=== PATIENT | male | born 1950 | race Caucasian/White ===

== ENCOUNTER 2024-08-19 07:49 | Inpatient (IN) ==
[2024-08-19] MEDS: HYDROmorphone 1 MG/ML SYRINGE IV ONE (08:57)
[2024-08-19 09:00] LABS: Basophils # (Auto) 0.02 K/mcL (0.00-0.30); Basophils % (Auto) 0.2 % (0.0-2.0); Eosinophils # (Auto) 0 K/mcL (0.00-0.70); Eosinophils % (Auto) 0 % (0.0-7.0); Hematocrit 40.7 % (40.1-51.0); Hemoglobin 13.9 g/dL (13.7-17.5); Lymphocytes % (Auto) 3.8 % (15.5-49.0); Mean Cell Volume 92.5 fL (80.0-100.0); Mean Corpuscular HGB Conc 34.2 g/dL (31.0-36.0); Mean Platelet Volume 8.7 fL (8.8-12.5); Monocytes # (Auto) 0.97 K/mcL (0.10-0.90); Monocytes % (Auto) 7.3 % (1.0-12.0); Neutrophils % (Auto) 88.3 % (38.0-78.0); Platelet Count 162 K/mcL (140-440); WBC 13.3 K/mcL (4.5-11.0)
[2024-08-19] MEDS: KETOROLAC 30 MG/ML VIAL IV ONE ×2 (09:01→09:22)
[2024-08-19 09:12] LABS: INR 1.1 (0.9-1.1); Prothrombin Time 14.8 sec (11.9-14.5)
[2024-08-19 09:22] LABS: ALT/SGPT 16 U/L (<40); AST/SGOT 14 U/L (<40); Albumin 3.7 gm/dL (3.2-5.2); Albumin/Globulin Ratio 1.6 (1.0-2.3); Alkaline Phosphatase 55 U/L (39-117); Bilirubin,Total 1.2 mg/dL (0.1-1.0); Blood Urea Nitrogen 14 mg/dL (8-23); Calcium 9.5 mg/dL (8.6-10.4); Carbon Dioxide 23 mmol/L (22-30); Chloride 95 mmol/L (96-108); Globulin 2.3 gm/dL (2.2-3.7); Glomerular Filtration Rate 84; Glucose 161 mg/dL (70-105); Potassium 3.8 mmol/L (3.3-5.1); Sodium 130 mmol/L (133-145)
[2024-08-19] MEDS: VANCOMYCIN PER PHARMACY IV ONE ×2 (09:50→15:57)
[2024-08-19] MEDS: VANCOMYCIN 1,250 MG in 0.9 % SODIUM CHLORIDE 500 ML IV SCH (09:50)
[2024-08-19] MEDS: cefTRIAXone 2 GM in DEXTROSE 5% IN WATER 50 ML IV ONE (11:30)
[2024-08-19] MEDS ORDERED: ONDANSETRON 4 MG/2 ML VIAL IV PRN ×3 (12:49→23:09)
[2024-08-19] MEDS ORDERED: VANCOMYCIN PER PHARMACY IV SCH (13:30)
[2024-08-19] MEDS: 0.9 % SODIUM CHLORIDE 1,000 ML IV SCH (13:52)
[2024-08-19] MEDS: VANCOMYCIN 1,000 MG in 0.9 % SODIUM CHLORIDE 250 ML IV SCH (14:00)
[2024-08-19] MEDS: MAGNESIUM SULFATE 2 GM/50 ML BAG IV ONE (14:05)
[2024-08-19] MEDS: 0.9 % SODIUM CHLORIDE 10 ML SYRINGE IV SCH (14:05)
[2024-08-19] MEDS: LACTATED RINGERS 1,000 ML IV SCH ×2 (14:37→23:20)
[2024-08-19 15:12] LABS: Appearance,Urine Clear (Clear); Bilirubin,Urine Negative (Negative); Color,Urine Yellow; Glucose,Urine (UA) Negative (Negative); Ketones,Urine Negative (Negative); Leukocyte Esterase,Urine Negative /uL (Negative); Nitrate,Urine Negative (Negative); Protein,Urine Negative (Negative); Urine Blood Negative ery/mcL (Negative); Urine RBC 0 /hpf (0-3); Urine Squamous Epithelial Cell 0 /hpf (0-4); Urine WBC 0 /hpf (0-4); Urobilinogen,Urine Normal
[2024-08-19] MEDS ORDERED: KETAMINE 50 MG/ML ML ONE (20:50)
[2024-08-19] MEDS ORDERED: PROPOFOL 200 MG/20 ML VIAL IV ONE (20:50)
[2024-08-19] MEDS ORDERED: ONDANSETRON 4 MG/2 ML VIAL ONE (20:51)
[2024-08-19] MEDS ORDERED: DEXAMETHASONE 10 MG/ML VIAL ONE (20:51)
[2024-08-19] MEDS ORDERED: LIDOCAINE 2% PF 5 ML VIAL ONE (20:51)
[2024-08-19] MEDS ORDERED: PHENYLephrine 1 MG/10 ML SYRINGE (ANEST) ONE (21:37)
[2024-08-19] MEDS ORDERED: fentaNYL 100 MCG/2 ML VIAL ONE ×2 (21:41→21:43)
[2024-08-19] MEDS ORDERED: HYDROmorphone 0.5 MG/0.5 ML SYRINGE ONE (21:56)
[2024-08-19] MEDS: VANCOMYCIN 1 GM VIAL TOPICAL SCH (22:00)
[2024-08-19] MEDS: TOBRAMYCIN PER PHARMACY IV ONE (22:00)
[2024-08-19] MEDS ORDERED: IPRATROPIUM/ALBUTEROL 3 ML AMPUL.NEB NEB PRN (22:22)
[2024-08-19] MEDS ORDERED: diphenhydrAMINE 50 MG/ML VIAL IV PRN (22:22)
[2024-08-19] MEDS ORDERED: fentaNYL 100 MCG/2 ML VIAL IV PRN (22:22)
[2024-08-19] MEDS ORDERED: LACTATED RINGERS 250 ML IV PRN (22:22)
[2024-08-19] MEDS ORDERED: NALOXONE HCL 0.4 MG/ML VIAL IV PRN (22:22)
[2024-08-19] MEDS ORDERED: BISACODYL 10 MG SUPP.RECT PR PRN (23:09)
[2024-08-19] MEDS ORDERED: BENZOCAINE/MENTHOL 1 LOZENGE PO PRN (23:09)
[2024-08-19] MEDS ORDERED: FLEETS ADULT 1 DOSE ENEMA PR PRN (23:09)
[2024-08-19] MEDS ORDERED: HYDROcodone/APAP 10/325MG TABLET PO PRN (23:09)
[2024-08-19] MEDS: ACETAMINOPHEN 1,000 MG/100 ML BAG IV ONE (23:20)
[2024-08-19] MEDS: HYDROmorphone 0.5 MG/0.5 ML SYRINGE IV PRN (23:52)
[2024-08-20] MEDS: oxyCODONE IR 5 MG TABLET PO PRN ×2 (00:03→08:26)
[2024-08-20] MEDS: morphine 4 MG/ML VIAL IV PRN (00:07)
[2024-08-20] MEDS: SENNOSIDES 1 TABLET PO SCH ×2 (02:42→20:04)
[2024-08-20] MEDS: LACTATED RINGERS 1,000 ML IV SCH (02:43)
[2024-08-20] MEDS: TRANEXAMIC ACID 1,000 MG/10 ML VIAL IV ONE (03:18)
[2024-08-20 06:07] LABS: Basophils # (Auto) 0.01 K/mcL (0.00-0.30); Basophils % (Auto) 0.1 % (0.0-2.0); Eosinophils # (Auto) 0 K/mcL (0.00-0.70); Eosinophils % (Auto) 0 % (0.0-7.0); Hematocrit 40.7 % (40.1-51.0); Hemoglobin 13.7 g/dL (13.7-17.5); Lymphocytes # (Auto) 0.41 K/mcL (1.50-4.80); Lymphocytes % (Auto) 3.3 % (15.5-49.0); Mean Cell Volume 94.7 fL (80.0-100.0); Mean Corpuscular HGB Conc 33.7 g/dL (31.0-36.0); Mean Platelet Volume 8.9 fL (8.8-12.5); Monocytes # (Auto) 0.36 K/mcL (0.10-0.90); Monocytes % (Auto) 2.9 % (1.0-12.0); Neutrophils % (Auto) 93.3 % (38.0-78.0); Platelet Count 168 K/mcL (140-440); WBC 12.3 K/mcL (4.5-11.0)
[2024-08-20 06:23] LABS: ALT/SGPT 13 U/L (<40); AST/SGOT 15 U/L (<40); Albumin 3.3 gm/dL (3.2-5.2); Albumin/Globulin Ratio 1.3 (1.0-2.3); Alkaline Phosphatase 52 U/L (39-117); Bilirubin,Direct 0.4 mg/dL (<0.3); Bilirubin,Total 0.7 mg/dL (0.1-1.0); Blood Urea Nitrogen 15 mg/dL (8-23); Calcium 9.3 mg/dL (8.6-10.4); Carbon Dioxide 22 mmol/L (22-30); Chloride 99 mmol/L (96-108); Globulin 2.6 gm/dL (2.2-3.7); Glomerular Filtration Rate 84; Glucose 174 mg/dL (70-105); Lactate Dehydrogenase 215 U/L (135-225); Phosphorous 3.1 mg/dL (2.5-4.5); Potassium 4.4 mmol/L (3.3-5.1); Sodium 134 mmol/L (133-145); Triglycerides 53 mg/dL (<150); Uric Acid 4.6 mg/dL (2.5-8.0)
[2024-08-20] MEDS: morphine 4 MG/ML VIAL ONE ×3 (06:30→06:35)
[2024-08-20] MEDS: 0.9 % SODIUM CHLORIDE 10 ML SYRINGE IV SCH ×2 (06:36→09:47)
[2024-08-20] MEDS: ACETAMINOPHEN 1,000 MG/100 ML BAG IV ONE (06:52)
[2024-08-20] MEDS ORDERED: 0.9 % SODIUM CHLORIDE 10 ML SYRINGE IV PRN (08:03)
[2024-08-20] MEDS: METHOCARBAMOL 750 MG TABLET PO PRN (08:26)
[2024-08-20] MEDS: cefTRIAXone 2 GM in DEXTROSE 5% IN WATER 50 ML IV SCH (08:27)
[2024-08-20] MEDS: DOCUSATE SODIUM 100 MG CAPSULE PO SCH (08:27)
[2024-08-20] MEDS: ASPIRIN 81 MG TAB.CHEW PO SCH (08:27)
[2024-08-20] MEDS: VANCOMYCIN 1,000 MG in 0.9 % SODIUM CHLORIDE 250 ML IV SCH (09:48)
[2024-08-20] MEDS ORDERED: SODIUM CHLORIDE IRRIG SOLUTION 250 ML BOTTLE IRR ONE (09:49)
[2024-08-20] MEDS ORDERED: LIDOCAINE 1% 10 ML VIAL SQ ONE (09:49)
[2024-08-20] MEDS: TOBRAMYCIN SULFATE 1.2 GM VIAL TOPICAL ONE (10:30)
[2024-08-20] MEDS ORDERED: cefTRIAXone 2 GM in DEXTROSE 5% IN WATER 50 ML IV SCH (10:45)
[2024-08-20] MEDS: FEXOFENADINE 180 MG TABLET PO SCH (11:14)
[2024-08-20] MEDS: BISOPROLOL 5 MG TABLET PO SCH (11:28)
[2024-08-20] MEDS: HYDROCHLOROTHIAZIDE 25 MG TABLET PO SCH (11:29)
[2024-08-21] MEDS: MAGNESIUM HYDROXIDE 30 ML ORAL.SUSP PO PRN (04:43)
[2024-08-21 06:38] LABS: Basophils # (Auto) 0.02 K/mcL (0.00-0.30); Basophils % (Auto) 0.2 % (0.0-2.0); Eosinophils # (Auto) 0.03 K/mcL (0.00-0.70); Eosinophils % (Auto) 0.3 % (0.0-7.0); Hematocrit 36.2 % (40.1-51.0); Hemoglobin 12.2 g/dL (13.7-17.5); Lymphocytes # (Auto) 0.89 K/mcL (1.50-4.80); Lymphocytes % (Auto) 9.9 % (15.5-49.0); Mean Cell Volume 95.3 fL (80.0-100.0); Mean Corpuscular HGB Conc 33.7 g/dL (31.0-36.0); Mean Platelet Volume 9.3 fL (8.8-12.5); Monocytes # (Auto) 0.73 K/mcL (0.10-0.90); Monocytes % (Auto) 8.1 % (1.0-12.0); Neutrophils % (Auto) 81.4 % (38.0-78.0); Platelet Count 180 K/mcL (140-440)
[2024-08-21 07:17] LABS: ALT/SGPT 13 U/L (<40); AST/SGOT 16 U/L (<40); Albumin 3.3 gm/dL (3.2-5.2); Albumin/Globulin Ratio 1.3 (1.0-2.3); Alkaline Phosphatase 56 U/L (39-117); Bilirubin,Direct 0.3 mg/dL (<0.3); Bilirubin,Total 0.6 mg/dL (0.1-1.0); Blood Urea Nitrogen 14 mg/dL (8-23); Carbon Dioxide 25 mmol/L (22-30); Chloride 100 mmol/L (96-108); Globulin 2.5 gm/dL (2.2-3.7); Glomerular Filtration Rate 88; Glucose 109 mg/dL (70-105); Lactate Dehydrogenase 223 U/L (135-225); Phosphorous 2.8 mg/dL (2.5-4.5); Sodium 136 mmol/L (133-145); Triglycerides 76 mg/dL (<150); Uric Acid 4.6 mg/dL (2.5-8.0)
[2024-08-21] MEDS: amLODIPine 5 MG TABLET PO SCH (08:14)
[2024-08-21] MEDS: ACETAMINOPHEN 325 MG TABLET PO PRN (08:14)
[2024-08-21] MEDS ORDERED: amLODIPine 5 MG TABLET PO SCH (09:00)
[2024-08-21] MEDS ORDERED: BISOPROLOL/HCTZ 5MG 1 TABLET PO SCH (09:00)
[2024-08-21] MEDS: CEFEPIME 2 GM VIAL IV SCH (11:14)
[2024-08-21] MEDS: CYCLOBENZAPRINE 10 MG TABLET PO PRN (21:42)
[2024-08-22 05:54] LABS: Basophils # (Auto) 0.03 K/mcL (0.00-0.30); Basophils % (Auto) 0.5 % (0.0-2.0); Eosinophils # (Auto) 0.22 K/mcL (0.00-0.70); Eosinophils % (Auto) 3.9 % (0.0-7.0); Hematocrit 35.8 % (40.1-51.0); Hemoglobin 11.8 g/dL (13.7-17.5); Lymphocytes # (Auto) 0.83 K/mcL (1.50-4.80); Lymphocytes % (Auto) 14.7 % (15.5-49.0); Mean Cell Volume 95.5 fL (80.0-100.0); Mean Platelet Volume 8.8 fL (8.8-12.5); Monocytes # (Auto) 0.48 K/mcL (0.10-0.90); Monocytes % (Auto) 8.5 % (1.0-12.0); Neutrophils % (Auto) 72.4 % (38.0-78.0); Platelet Count 176 K/mcL (140-440); RBC 3.75 M/mcL (4.63-6.08); Red Cell Distribution Width 12.9 % (11.5-14.5); WBC 5.6 K/mcL (4.5-11.0)
[2024-08-22 06:19] LABS: ALT/SGPT 14 U/L (<40); AST/SGOT 16 U/L (<40); Albumin 3.2 gm/dL (3.2-5.2); Albumin/Globulin Ratio 1.4 (1.0-2.3); Alkaline Phosphatase 47 U/L (39-117); Bilirubin,Direct 0.3 mg/dL (<0.3); Bilirubin,Total 0.6 mg/dL (0.1-1.0); Blood Urea Nitrogen 16 mg/dL (8-23); Calcium 10.2 mg/dL (8.6-10.4); Carbon Dioxide 27 mmol/L (22-30); Chloride 100 mmol/L (96-108); Globulin 2.3 gm/dL (2.2-3.7); Glomerular Filtration Rate 88; Glucose 103 mg/dL (70-105); Lactate Dehydrogenase 175 U/L (135-225); Phosphorous 3.7 mg/dL (2.5-4.5); Potassium 3.8 mmol/L (3.3-5.1); Sodium 137 mmol/L (133-145); Triglycerides 66 mg/dL (<150); Uric Acid 4.8 mg/dL (2.5-8.0)
[2024-08-22] MEDS: LOSARTAN 50 MG TABLET PO SCH (11:06)
[2024-08-23 05:37] LABS: Basophils # (Auto) 0.04 K/mcL (0.00-0.30); Basophils % (Auto) 0.8 % (0.0-2.0); Eosinophils % (Auto) 5.7 % (0.0-7.0); Hematocrit 36.3 % (40.1-51.0); Hemoglobin 12.3 g/dL (13.7-17.5); Lymphocytes # (Auto) 0.81 K/mcL (1.50-4.80); Lymphocytes % (Auto) 15.3 % (15.5-49.0); Mean Corpuscular HGB Conc 33.9 g/dL (31.0-36.0); Mean Platelet Volume 8.8 fL (8.8-12.5); Monocytes # (Auto) 0.56 K/mcL (0.10-0.90); Monocytes % (Auto) 10.6 % (1.0-12.0); Platelet Count 176 K/mcL (140-440); RBC 3.86 M/mcL (4.63-6.08); Red Cell Distribution Width 12.8 % (11.5-14.5); WBC 5.3 K/mcL (4.5-11.0)
[2024-08-23 06:08] LABS: Blood Urea Nitrogen 16 mg/dL (8-23); C-Reactive Protein 4.27 mg/dL (0.03-0.80); Calcium 10.5 mg/dL (8.6-10.4); Carbon Dioxide 25 mmol/L (22-30); Chloride 100 mmol/L (96-108); Glomerular Filtration Rate 88; Glucose 112 mg/dL (70-105); Potassium 3.7 mmol/L (3.3-5.1); Sodium 138 mmol/L (133-145)
[2024-08-24 06:27] LABS: Basophils # (Auto) 0.05 K/mcL (0.00-0.30); Basophils % (Auto) 0.8 % (0.0-2.0); Eosinophils # (Auto) 0.33 K/mcL (0.00-0.70); Eosinophils % (Auto) 5.4 % (0.0-7.0); Hematocrit 37.4 % (40.1-51.0); Hemoglobin 12.7 g/dL (13.7-17.5); Lymphocytes # (Auto) 0.94 K/mcL (1.50-4.80); Lymphocytes % (Auto) 15.4 % (15.5-49.0); Mean Cell Volume 93.7 fL (80.0-100.0); Mean Platelet Volume 8.8 fL (8.8-12.5); Monocytes # (Auto) 0.51 K/mcL (0.10-0.90); Monocytes % (Auto) 8.3 % (1.0-12.0); Neutrophils % (Auto) 69.3 % (38.0-78.0); Platelet Count 180 K/mcL (140-440); RBC 3.99 M/mcL (4.63-6.08); Red Cell Distribution Width 12.8 % (11.5-14.5); WBC 6.1 K/mcL (4.5-11.0)
[2024-08-24 07:07] LABS: Blood Urea Nitrogen 17 mg/dL (8-23); C-Reactive Protein 3.62 mg/dL (0.03-0.80); Calcium 10.8 mg/dL (8.6-10.4); Carbon Dioxide 24 mmol/L (22-30); Chloride 103 mmol/L (96-108); Creatine Kinase 22 U/L (24-195); Glomerular Filtration Rate 88; Glucose 133 mg/dL (70-105); Potassium 3.7 mmol/L (3.3-5.1); Sodium 138 mmol/L (133-145)
[2024-08-24] MEDS: POLYETHYLENE GLYCOL 3350 17 GM PACKET PO PRN (08:23)
[2024-08-24] MEDS: ALTEPLASE 2 MG VIAL IV PRN (22:50)
[2024-08-25 06:35] LABS: Basophils # (Auto) 0.05 K/mcL (0.00-0.30); Basophils % (Auto) 0.8 % (0.0-2.0); Eosinophils # (Auto) 0.32 K/mcL (0.00-0.70); Eosinophils % (Auto) 4.9 % (0.0-7.0); Hematocrit 37.6 % (40.1-51.0); Hemoglobin 12.6 g/dL (13.7-17.5); Lymphocytes % (Auto) 10.6 % (15.5-49.0); Mean Cell Volume 94.5 fL (80.0-100.0); Mean Corpuscular HGB Conc 33.5 g/dL (31.0-36.0); Mean Platelet Volume 8.8 fL (8.8-12.5); Monocytes # (Auto) 0.74 K/mcL (0.10-0.90); Monocytes % (Auto) 11.2 % (1.0-12.0); Neutrophils % (Auto) 71.6 % (38.0-78.0); Platelet Count 190 K/mcL (140-440); RBC 3.98 M/mcL (4.63-6.08); Red Cell Distribution Width 12.9 % (11.5-14.5); WBC 6.6 K/mcL (4.5-11.0)
[2024-08-25 07:12] LABS: Blood Urea Nitrogen 18 mg/dL (8-23); Calcium 10.5 mg/dL (8.6-10.4); Carbon Dioxide 25 mmol/L (22-30); Chloride 101 mmol/L (96-108); Glomerular Filtration Rate 88; Glucose 124 mg/dL (70-105); Potassium 4.1 mmol/L (3.3-5.1); Sodium 136 mmol/L (133-145)
[2024-08-25] MEDS: cefTRIAXone 1 GM VIAL IV SCH (08:37)
[2024-08-25] MEDS: cefTRIAXone 2 GM in DEXTROSE 5% IN WATER 50 ML IV SCH (09:00)
[2024-08-25] MEDS: DAPTOmycin 500 MG VIAL IV SCH (09:45)
[2024-08-26 06:16] LABS: Basophils # (Auto) 0.06 K/mcL (0.00-0.30); Basophils % (Auto) 0.8 % (0.0-2.0); Eosinophils # (Auto) 0.26 K/mcL (0.00-0.70); Eosinophils % (Auto) 3.6 % (0.0-7.0); Hematocrit 39.4 % (40.1-51.0); Hemoglobin 13.2 g/dL (13.7-17.5); Lymphocytes # (Auto) 0.85 K/mcL (1.50-4.80); Lymphocytes % (Auto) 11.8 % (15.5-49.0); Mean Cell Volume 94.5 fL (80.0-100.0); Mean Corpuscular HGB Conc 33.5 g/dL (31.0-36.0); Mean Platelet Volume 8.7 fL (8.8-12.5); Monocytes # (Auto) 0.78 K/mcL (0.10-0.90); Monocytes % (Auto) 10.8 % (1.0-12.0); Neutrophils % (Auto) 71.7 % (38.0-78.0); Platelet Count 201 K/mcL (140-440); RBC 4.17 M/mcL (4.63-6.08); Red Cell Distribution Width 12.9 % (11.5-14.5); WBC 7.2 K/mcL (4.5-11.0)
[2024-08-26 06:54] LABS: Blood Urea Nitrogen 20 mg/dL (8-23); Calcium 11.2 mg/dL (8.6-10.4); Carbon Dioxide 25 mmol/L (22-30); Chloride 102 mmol/L (96-108); Glomerular Filtration Rate 88; Glucose 117 mg/dL (70-105); Potassium 3.9 mmol/L (3.3-5.1); Sodium 138 mmol/L (133-145)
== END 2024-08-26 14:59 | disposition home or self-care (01) ==
LOC: ED 07:49 → MEDSUR 12:45
PROVIDERS: ADMIT Internal Medicine; ATTEND Student in an Organized Health Care Education/Training Program